=== PATIENT | male | born 1985 | race African-American/Black ===

== ENCOUNTER 2017-03-13 13:41 | Emergency (ER) | payer OTHER ==
[2017-03-13 13:54] VITALS: BP 137/71; PULSE 65; TEMP 97; BMI 31.4
[2017-03-13] MEDS ORDERED: KETOROLAC TROMETHAMINE 60 MG/2 ML VIAL ONE (14:26)
--- NOTE | 2017-03-13 14:33 | PDOC ---
History of Present Illness - General Chief Complaint: Injury Stated Complaint: INURY/WORK RELATED Time Seen by Provider: 03/13/17 14:20 History Source: Patient Exam Limitations: No Limitations - History of Present Illness Initial Comments: 03/13/17 14:28 03/13/17 14:28 [facility] worker; COs of left upper arm pain post lifting today at work Occurred: reports: just prior to arrival Severity: reports: mild Pain Location: reports: upper extremity Method of Injury: Yes: other Past History - Past Medical History Allergies/Adverse Reactions: Allergies Allergy/AdvReac Type Severity Reaction Status Date / Time No Known Allergies Allergy Verified 03/13/17 13:54 Home Medications: Ambulatory Orders NK [No Known Home Medication] 12/27/14 Thyroid Disease: No - Immunization History Immunization Up to Date: Yes - Psycho/Social/Smoking Cessation Hx Anxiety: No Suicidal Ideation: No Smoking History: Never smoked Have you smoked in the past 12 months: No Information on smoking cessation initiated: No Hx Alcohol Use: No Drug/Substance Use Hx: No Substance Use Type: Alcohol Review of Systems - Review of Systems Constitutional: No: Symptoms Reported, Chills, Fever, Malaise HEENTM: No: Symptoms Reported Respiratory: No: Symptoms reported, Cough ABD/GI: No: Symptoms Reported Musculoskeletal: Yes: Other (pain left bicep pain) *Physical Exam - Vital Signs Last Vital Signs Temp Pulse Resp BP Pulse Ox 97.0 F L 65 18 137/71 100 03/13/17 13:50 03/13/17 13:50 03/13/17 13:50 03/13/17 13:50 03/13/17 13:50 - Physical Exam General Appearance: Yes: Appropriately Dressed. No: Apparent Distress HEENT: positive: TMs Normal, Pharynx Normal Neck: negative: Tender, Rigid Respiratory/Chest: positive: Lungs Clear Extremity: positive: Other (tender proximal biscep; no significant shortening noted) Medical Decision Making - Medical Decision Making 03/13/17 14:32 will give toradol in [place] and have follow up 1week with local MD *DC/Admit/Observation/Transfer Diagnosis at time of Disposition: Strain of left biceps Qualifiers: Encounter type: initial encounter Qualified Code(s): S46.212A - Strain of muscle, fascia and tendon of other parts of biceps, left arm, initial encounter - Discharge Dispostion Disposition: HOME Condition at time of disposition: Stable Admit: No - Patient Instructions Additional Instructions: please see local MD next week for reevaluation; [place] 2 times daily - Post Discharge Activity Work/School Note: Back to Work
== END 2017-03-13 14:52 | disposition home or self-care (01) ==
LOC: JERFT 13:41
DX: S46.212A Strain of muscle, fascia and tendon of other parts of biceps, left arm, initial encounter (principal); X50.0XXA Overexertion from strenuous movement or load, initial encounter; Y93.89 Activity, other specified; Y92.89 Other specified places as the place of occurrence of the external cause; Y99.0 Civilian activity done for income or pay
CPT/HCPCS: 99281-25

== ENCOUNTER 2019-04-02 11:49 | Emergency (ER) | payer OTHER | END 2019-04-02 14:45 | disposition home or self-care (01) | LOC: JERFT 11:49 ==

== ENCOUNTER 2019-06-06 04:58 | Day surgery (SDC) | payer OTHER ==
[2019-05-26 12:24] VITALS: BMI 29.9
--- NOTE | 2019-06-06 08:02 | HP ---
[facility] - Chief Complaint Chief Complaint: R KNEE PAIN History Source: Patient - Past Medical History Allergies/Adverse Reactions: Allergies Allergy/AdvReac Type Severity Reaction Status Date / Time No Known Drug Allergies Allergy Verified 05/26/19 12:30 seasonal AdvReac Uncoded 05/26/19 12:30 - Current Medications Current Medications: Home Medications Medication Instructions Recorded Multivitamin [Multiple Vitamins] 1 each PO DAILY 05/26/19 [place] Physical Exam - Physical Examination Extremities: Other (+ R KNEE JOINT LINE TENDERNESS) [facility] Impression/Plan - Impression/Plan Impression: INERNAL DERANGEMENT R KNEE Operative Procedure: ARTHROSCOPY R KNEE Date to be Performed: 06/06/19
[2019-06-06] MEDS ORDERED: LIDOCAINE 1%-EPI 1:100,000 30 ML MDV IJ ONE (08:18)
[2019-06-06] MEDS ORDERED: PROPOFOL 20 ML ONE ×2 (09:54)
[2019-06-06] MEDS ORDERED: DEXAMETHASONE SOD PHOSPHATE 4 MG/1 ML VIAL ONE (10:10)
[2019-06-06] MEDS ORDERED: KETOROLAC TROMETHAMINE 30 MG/1 ML VIAL ONE (10:10)
[2019-06-06] MEDS ORDERED: LIDOCAINE 1%/EPI 1:100000 (20 ML MULTI DOSE VIAL) IJ ONE (10:12)
[2019-06-06] MEDS ORDERED: BUPIVACAINE HCL/PF 0.5% (5 MG/ML) 30 ML VIAL IJ ONE (10:13)
--- NOTE | 2019-06-06 10:32 | OP ---
Operative Note - Note: Operative Date: 06/06/19 Pre-Operative Diagnosis: internal derangement right knee Operation: arthroscopy right knee with partial lateral meniscectomy Post-Operative Diagnosis: Same as Pre-op Surgeon: Jerson Kang Estimated Blood Loss (mls): 0 Operative Report Dictated: Yes
[2019-06-06] MEDS ORDERED: ONDANSETRON 4 MG/2 ML VIAL IVPUSH PRN (10:42)
[2019-06-06] MEDS ORDERED: ACETAMINOPHEN 325 MG TABLET (FP) PO PRN (10:42)
[2019-06-06] MEDS ORDERED: oxyCODONE HCL 5 MG TABLET PO PRN (10:42)
[2019-06-06] MEDS ORDERED: LACTATED RINGERS SOLUTION 1,000 ML IV SCH (10:45)
[2019-06-06 12:00] VITALS: TEMP 97.9
[2019-06-06 12:43] VITALS: BP 116/63; PULSE 66
--- NOTE | 2019-06-07 07:43 | OP ---
DATE OF OPERATION: 06/06/2019 PREOPERATIVE DIAGNOSIS: Internal derangement, right knee. POSTOPERATIVE DIAGNOSIS: Internal derangement, right knee. PROCEDURE: Arthroscopy, right knee, partial lateral meniscectomy. SURGICAL ATTENDING: Jerson Kang MD ANESTHESIA: LMA. CLOSURE: 3-0 nylon. COMPLICATIONS: None. CONDITION: To recovery room in stable condition. DESCRIPTION OF PROCEDURE: Patient was taken to the operating room on June 06, 2019. General anesthesia with LMA was administered by the anesthesiologist. The right lower extremity was prepped and draped in the usual sterile fashion. The medial and lateral infrapatellar portal sites were infiltrated with 1% Xylocaine with epinephrine. Both portals was then made with a 15 blade followed by a blunt trocar. The scope was placed in the lateral infrapatellar portal and up into the suprapatellar pouch. The knee was then inflated with cocktail 10 mL 1% lidocaine, 10 mL 0.5% Marcaine, and 20 mL of arthroscopic saline. After allowing the anesthetic to work in the knee, the procedure was performed. Both gutters were visualized to be clean. The undersurfaces of the patella and trochlear were visualized to be intact. The pouch was cleaned. With valgus stress on the knee, the medial compartment was entered. Medial meniscus was visualized, probed, and found to be intact. The medial femoral condyle was run and found to be intact as was the medial tibial plateau. Then, 90 degrees of the ACL was visualized, probed, and found to be intact. In the figure-of-4 position, lateral compartment was entered. Lateral meniscus was found to have a complex tear of its mid portion. This was debrided back to smooth stable meniscal tissues using meniscal biter and arthroscopic shaver. The lateral femoral condyle was run and found to be intact, as was the lateral tibial plateau. The knee was irrigated with copious amounts of irrigation. The portals were closed using 4-0 nylon. Prior to pulling the trocar, 20 mL of 0.5% Marcaine was infused through the scope outflow portal for postoperative analgesia. Sterile pressure dressing was placed over the knee. Patient awakened from anesthesia and transferred to recovery in stable condition. No complications. Estimated blood loss negligible. Buddy [id number]
--- NOTE | 2019-06-10 16:06 | PATH ---
Surgical Pathology Report Patient Name: LIDIA SANCHEZ [facility]. Rec. #: [id number] /Age/Gender: 1985 (Age: 34) / M Account: [id number] Location: [facility] SURGICAL Taken: 06/06/2019 Received: 06/06/2019 Reported: 06/09/2019 Physicians: Jerson Kang M.D. Specimen(s) Received RIGHT KNEE SHAVINGS Clinical History Tear right knee Final Diagnosis KNEE SHAVINGS, RIGHT, ARTHROSCOPY: FRAGMENTS OF CARTILAGE, DENSE FIBROCONNECTIVE TISSUE, ADIPOSE TISSUE, AND SYNOVIUM. Electronically Signed Vanita Melendrez M.D. Gross Description Received in formalin, labeled "right knee shavings," is a 3.4 x 2.5 x 0.3 cm. aggregate of maddox-yellow soft tissue fragments. A delivery representative portion is submitted in one cassette. /06/06/2019 saudi06/06/2019
== END 2019-06-06 13:02 | disposition home or self-care (01) ==
LOC: JASU-SURG 04:58
PROVIDERS: ATTEND Orthopaedic Surgery
PROC: 0SBC4ZZ Excision of Right Knee Joint, Percutaneous Endoscopic Approach (ICD-10-PCS; principal; 2019-06-06 09:30)
DX: S83.271A Complex tear of lateral meniscus, current injury, right knee, initial encounter (principal); X58.XXXA Exposure to other specified factors, initial encounter; Y93.9 Activity, unspecified; Y92.9 Unspecified place or not applicable; Y99.9 Unspecified external cause status
CPT/HCPCS: 88304-TC; 94760

== ENCOUNTER 2020-09-01 12:48 | Emergency (ER) | payer OTHER ==
[2020-09-01 13:10] VITALS: BP 109/53; PULSE 77; TEMP 98; BMI 32.7
== END 2020-09-01 13:57 | disposition home or self-care (01) ==
LOC: JERFT 12:48
DX: S29.012A Strain of muscle and tendon of back wall of thorax, initial encounter (principal)
CPT/HCPCS: 71045-TC-FY; 71101-TC-LT-FY; 99284-25

== ENCOUNTER 2022-12-27 09:14 | Emergency (ER) | payer OTHER ==
[2022-12-27 09:23] VITALS: BP 141/87; PULSE 66; RESP 18; TEMP 98.5; BMI 33.6
[2022-12-27] MEDS ORDERED: IBUPROFEN 600 MG TABLET (FP) PO ONE ×2 (09:40→09:46)
== END 2022-12-27 09:50 | disposition home or self-care (01) ==
LOC: JERFT 09:14 → JER 09:14 → JERFT 09:50
PROC: 3E0233Z Introduction of Anti-inflammatory into Muscle, Percutaneous Approach (ICD-10-PCS; principal; 2022-12-27)
DX: T59.811A Toxic effect of smoke, accidental (unintentional), initial encounter (principal); J70.5 Respiratory conditions due to smoke inhalation; M54.2 Cervicalgia; M25.519 Pain in unspecified shoulder; W20.8XXA Other cause of strike by thrown, projected or falling object, initial encounter; X08.8XXA Exposure to other specified smoke, fire and flames, initial encounter; Y93.I9 Activity, other involving external motion; Y99.0 Civilian activity done for income or pay
CPT/HCPCS: 99282-25

== ENCOUNTER 2023-02-22 07:46 | Emergency (ER) | payer OTHER ==
[2023-02-22 07:57] VITALS: BP 137/82; PULSE 82; RESP 16; TEMP 97.9; BMI 33.6
[2023-02-22] MEDS ORDERED: LIDOCAINE 5% TOPICAL PATCH TP ONE (08:11)
[2023-02-22] MEDS ORDERED: KETOROLAC TROMETHAMINE 30 MG/1 ML VIAL IM ONE (08:11)
[2023-02-22] MEDS ORDERED: KETOROLAC TROMETHAMINE 30 MG/1 ML VIAL ONE (08:13)
[2023-02-22] MEDS ORDERED: LIDOCAINE 5% TOPICAL PATCH ONE (08:13)
== END 2023-02-22 08:30 | disposition home or self-care (01) ==
LOC: JERFT 07:46
PROC: 3E0233Z Introduction of Anti-inflammatory into Muscle, Percutaneous Approach (ICD-10-PCS; principal; 2023-02-22)
DX: S46.811A Strain of other muscles, fascia and tendons at shoulder and upper arm level, right arm, initial encounter (principal); X50.0XXA Overexertion from strenuous movement or load, initial encounter; Y99.0 Civilian activity done for income or pay
CPT/HCPCS: 73030-TC-RT-FY; 99284-25

== ENCOUNTER 2023-04-13 04:12 | Day surgery (SDC) | payer OTHER ==
[2023-04-11 14:46] VITALS: BMI 33.0
[2023-04-13] MEDS ORDERED: DEXAMETHASONE SOD PHOSPHATE 10 MG/1 ML VIAL ONE (07:23)
[2023-04-13] MEDS ORDERED: LIDOCAINE HCL/PF 1% SDV 5ML VIAL ONE (07:23)
[2023-04-13] MEDS ORDERED: ACETAMINOPHEN 500 MG TABLET (FP) PO PRN (11:08)
[2023-04-13 12:23] VITALS: RESP 20
[2023-04-13] MEDS ORDERED: LIDOCAINE HCL 1% PRESERVATIVE FREE - 30ML VIAL IJ ONE (13:56)
[2023-04-13] MEDS ORDERED: IOHEXOL 180 MG/1 ML ML IJ ONE (13:57)
[2023-04-13] MEDS ORDERED: DEXAMETHASONE SOD PHOSPHATE 10 MG/1 ML VIAL IVPUSH ONE (13:57)
[2023-04-13 15:23] VITALS: BP 117/72; PULSE 63; TEMP 97.5
== END 2023-04-13 14:55 | disposition home or self-care (01) ==
LOC: JASU-SURG 04:12
PROVIDERS: ATTEND Pain Medicine Pain Medicine
PROC: 3E0R3BZ Introduction of Anesthetic Agent into Spinal Canal, Percutaneous Approach (ICD-10-PCS; 2023-04-13)
PROC: 3E0R33Z Introduction of Anti-inflammatory into Spinal Canal, Percutaneous Approach (ICD-10-PCS; principal; 2023-04-13 13:45)
DX: M54.12 Radiculopathy, cervical region (principal)
CPT/HCPCS: 76000-TC-FY; J1100